=== PATIENT | male | born 1940 | race Caucasian/White ===

== ENCOUNTER → 2023-11-03 14:10 | Outpatient (REF) | payer MEDICARE, BC, SELFPAY | LOC: RAD 14:10 | PROVIDERS: ATTENDING PHYSICIAN Nurse Practitioner Family | DX: M79.89 Other specified soft tissue disorders (principal); R60.0 Localized edema | CPT/HCPCS: 93970 ==

== ENCOUNTER → 2024-12-11 14:20 | Outpatient (REF) | payer MEDICARE, BC, SELFPAY | LOC: RAD 14:20 | PROVIDERS: ATTENDING PHYSICIAN Nurse Practitioner Family | DX: M79.605 Pain in left leg (principal) | CPT/HCPCS: 93971 ==